=== PATIENT | female | born 1995 ===

== ENCOUNTER 2018-07-17 19:38 | Emergency (ER) | payer MEDICAID ==
[2018-07-17 19:39] VITALS: BMI 28.3
[2018-07-17] MEDS ORDERED: Sodium Chloride 0.9% 1,000 ML IV STA (20:15)
--- NOTE | 2018-07-17 20:27 | C.PDOC ---
History Of Present Illness 23 y/o F c no PMHx p/w fever, cough, congestion, headache, body aches x 3 days. States multiple family members with same symptoms. Denies dyspnea, abodminal pain, vomiting, dysuria. Time Seen by Provider: 07/17/18 19:59 Chief Complaint (Nursing): Cough, Cold, Congestion Past Medical History Vital Signs: Last Vital Signs Temp 102.5 F H 07/17/18 19:48 Pulse 107 H 07/17/18 19:48 Resp 22 07/17/18 19:48 BP 104/70 07/17/18 19:48 Pulse Ox 98 07/17/18 19:48 - [facility] Procedures DELIVERY OF PRODUCTS OF CONCEPTION, EXTERNAL APPROACH (05/31/16) INTRODUCE OF OTH THERAP SUBST INTO FEM REPROD, VIA OPENING (05/31/16) Family History: States: No Known Family Hx - Social History Hx Alcohol Use: No Hx Substance Use: No - Immunization History Hx Tetanus Toxoid Vaccination: No Hx Influenza Vaccination: No Hx Pneumococcal Vaccination: No Review Of Systems Except As Marked, All Systems Reviewed And Found Negative. Cardiovascular: Negative for: Chest Pain Gastrointestinal: Negative for: Vomiting Physical Exam - Physical Exam Additional Physical Exam Comments: Constitutional: No acute distress. Head: Normocephalic. Atraumatic. Eyes: PERRL. ENT: Moist mucous membranes. Neck: Supple. Cardiovascular: Tachycardic. Chest: No tenderness. Respiratory: Clear to auscultation bilaterally. GI: Soft. Nontender. Nondistended. Back: No CVA tenderness. Musculoskeletal: No tenderness or swelling of extremities. Skin: No rash. Neurologic: Alert, no focal deficit. ED Course And Treatment - Laboratory Results Result Diagrams: 07/17/18 20:47 07/17/18 20:47 O2 Sat by Pulse Oximetry: 98 Medical Decision Making Medical Decision Making: CXR no pneumonia. Influenza negative. UA no infection. Labs unremarkable. Will treat as viral illness. F/u PMD, return to ED for worsening pain, fever, dyspnea, vomiting, or any other problem. Disposition - Disposition Disposition: HOME/ ROUTINE Disposition Time: 21:27 Condition: STABLE Prescriptions: D-Methorphan/PE/Acetaminophen [Vicks Dayquil Liquicaps] 2 tab PO Q4H #24 capsule Ibuprofen [Motrin] 600 mg PO Q6 #25 tab Instructions: Viral Syndrome (DC) Forms: [employer] ([employer]) - Clinical Impression Clinical Impression: Influenza-like illness
[2018-07-17] MEDS ORDERED: Sodium Chloride 0.9% 1,000 ML ONE (20:31)
[2018-07-17 20:50] LABS: BASO % 0.5 % (0.0-2.0); EOS % 0.5 % (0.0-4.0); HEMOGLOBIN 14.7 g/dL (11.0-16.0); LYMPH # 1.2 K/uL (1.0-4.3); LYMPH % 15.3 % (20.0-40.0); MEAN CELL VOLUME 84.3 fL (81.0-99.0); MEAN CORPUSCULAR HEMOGLOBIN 28.7 pg (27.0-31.0); MEAN CORPUSCULAR HGB CONC 34.1 g/dL (33.0-37.0); MEAN PLATELET VOLUME 9.3 fL (7.2-11.7); MONO # 0.9 K/uL (0.0-0.8); MONO % 11.2 % (0.0-10.0); NEUT # 5.6 K/uL (1.8-7.0); NEUT % 72.5 % (50.0-75.0); NRBC % 0.1 % (0.0-2.0); RBC 5.13 Mil/uL (3.80-5.20); RED CELL DISTRIBUTION WIDTH 14.7 % (11.5-14.5); WHITE BLOOD COUNT 7.7 K/uL (4.8-10.8)
[2018-07-17 20:58] LABS: VENOUS BLOOD GAS PCO2 36 mmHg (40-60); VENOUS BLOOD GAS PO2 57 mm/Hg (30-55); VENOUS BLOOD PH 7.46 (7.32-7.43)
[2018-07-17 21:01] LABS: ALB/GLOB RATIO 1.5 (1.0-2.1); ALBUMIN 4.1 g/dL (3.5-5.0); ALT/SGPT 45 U/L (9-52); AST/SGOT 63 U/L (14-36); BLOOD UREA NITROGEN 6 mg/dL (7-17); CALCIUM 8.5 mg/dl (8.6-10.4); GFR NON-AFRICAN AMERICAN > 60
[2018-07-17 21:22] LABS: SQUAMOUS EPITHIAL 1 /hpf (0-5); URINE BACTERIA OCC (<OCC); URINE BILIRUBIN NEGATIVE (NEGATIVE); URINE BLOOD NEGATIVE (NEGATIVE); URINE CLARITY Clear (Clear); URINE COLOR Yellow (YELLOW); URINE GLUCOSE (UA) NORMAL (Normal); URINE LEUKOCYTE ESTERASE NEG Leu/uL (Negative); URINE PROTEIN 1+ mg/dL (NEGATIVE)
[2018-07-17 21:23] LABS: HCG,QUALITATIVE URINE NEGATIVE (NEGATIVE)
[2018-07-17 21:47] VITALS: BP 110/66; PULSE 81; RESP 14; TEMP 99.1; O2SAT 99
--- NOTE | 2018-07-18 10:47 | RAD ---
Date of service: 07/17/2018 HISTORY: fever, cough COMPARISON: No prior. TECHNIQUE: Chest PA and lateral FINDINGS: LUNGS: No active pulmonary disease. PLEURA: No significant pleural effusion identified. No pneumothorax apparent. CARDIOVASCULAR: No aortic atherosclerotic calcification present. Normal cardiac size. No pulmonary vascular congestion. OSSEOUS STRUCTURES: No significant abnormalities. VISUALIZED UPPER ABDOMEN: Normal. OTHER FINDINGS: None. IMPRESSION: No active disease.
== END 2018-07-17 21:48 | disposition home or self-care (01) ==
LOC: C.ER 19:38
DX: J11.1 Influenza due to unidentified influenza virus with other respiratory manifestations (principal)
CPT/HCPCS: 71046; 80053; 81001; 82803; 84703; 85025; 87040; 87086; 87804; 96361; 96374; 99284; J1885; J7030